=== PATIENT | female | born 2000 | race Two or more races ===

== ENCOUNTER 2022-08-01 02:23 | Emergency (ER) | payer MEDICAID, OTHER ==
[~2022-08-01] VITALS: Ht 157.5 cm; Wt 120.0 kg
[2022-08-01] MEDS ORDERED: DexAMETHasone SOD PHOS 10MG/1ML VIAL INJ IV ONE (02:45)
[2022-08-01] MEDS ORDERED: diphenhdrAMINE HCL 50 MG/1 ML VL IV ONE (02:45)
[2022-08-01] MEDS ORDERED: FAMOTIDINE (10MG/ML) 2ML VL IV ONE (02:45)
[2022-08-01 03:12] LABS: Eosinophils # (auto) 0.1 10 ^3/uL (0-0.8); Red Cell Distribution Width 15.2 % (11.8-14.3)
[2022-08-01 03:13] LABS: Basophils # (auto) 0.2 10 ^3/uL (0-0.2); Basophils % (auto) 1.8 % (0.0-2.0); Eosinophils % (auto) 1.2 % (0.0-7.0); Hematocrit 45.7 % (36.0-46.0); Hemoglobin 15.4 g/dL (12.2-16.2); Lymphocytes # (auto) 4.9 10 ^3/uL (0.4-5.4); Lymphocytes % (auto) 44.2 % (10.0-50.0); Mean Corpuscular Hemoglobin 27.2 pg (28.0-32.0); Mean Corpuscular Hgb Conc. 33.7 g/dL (32.0-36.0); Mean Corpuscular Volume 80.7 fL (80.0-100.0); Monocytes # (auto) 0.5 10 ^3/uL (0-1.3); Monocytes % (auto) 4.9 % (0.0-12.0); Neutrophils # (auto) 5.3 10 ^3/uL (1.6-8.6); Neutrophils % (auto) 47.9 % (37.0-80.0); Nucleated Red Blood Cells % 0.1 %; Red Blood Cells 5.67 10^6/uL (4.0-5.20); White Blood Cell 11.1 10^3/uL (4.4-10.8)
[2022-08-01 03:24] LABS: Albumin 3.4 g/dL (3.4-5.0); Calcium 8.4 mg/dL (8.5-10.1); Potassium 3.8 mmol/L (3.5-5.1)
[2022-08-01 03:26] LABS: Bilirubin, Total 0.4 mg/dL (0.2-1.0); Total Protein 7.8 g/dL (6.4-8.2)
[2022-08-01] MEDS ORDERED: SODIUM CHLORIDE 0.9% 1,000 ML IV ONE ×2 (04:15→05:45)
[2022-08-01] MEDS ORDERED: InsuLIN REG 1unit/0.01ml Soln (100units/ml) IV ONE (04:15)
[2022-08-01 04:16] LABS: BUN/Creatinine Ratio 9.1 (10.0-20.0)
[2022-08-01 07:55] VITALS: BP 110/58
[2022-08-01] MEDS ORDERED: DIPH25CA66 PO (08:09)
[2022-08-01] MEDS ORDERED: EPIN0.1I11 IJ (08:09)
[2022-08-01] MEDS ORDERED: InsuLIN REG 1unit/0.01ml Soln (100units/ml) SC ONE (08:30)
[2022-08-01] MEDS ORDERED: metFORMIN HYDROCHLORIDE 500 MG TAB PO ONE (09:00)
== END 2022-08-01 08:16 | disposition home or self-care (01) ==
LOC: ER 02:23
DX: T78.40XA Allergy, unspecified, initial encounter (principal); E11.8 Type 2 diabetes mellitus with unspecified complications; X58.XXXA Exposure to other specified factors, initial encounter
CPT/HCPCS: 36415; 80053; 82962; 85025; 96361; 96372; 96374; 96375; 99284; J1100; J1200; J1815; J3490; J7030